=== PATIENT | female | born 1945 | race Caucasian/White ===

== ENCOUNTER 2016-04-26 10:00 | Outpatient (RCR) | payer MEDICARE ==
--- NOTE | 2016-02-29 10:23 | PT/OT/ST INITIAL EVALUATION ---
Department of Health and Human Services Form Approved [facility] Care Financing Administration OMB No. [id number] PLAN OF CARE/ASSESSMENT FOR OUTPATIENT REHABILITATION (Complete for Initial Claims Only) 1. LAST NAME Goodson FIRST NAME Josselin Johnson 2. ACC # [id number] 3. [facility] [id number] 4. PROVIDER NO. [id number] 5. TYPE: X PT 6. PRIOR THERAPY (Same condition) 7. PRIMARY DX Status post left knee scope 8. SECONDARY DX weakness 9. ONSET DATE 02/18/2016 10. REFERRAL DATE 11. SOC. DATE/TIME 02/23/2016 08:05 12. PRIOR LEVEL OF FUNCTION; PERTINENT HISTORY (Prior therapy results, reason for referral.) S: Prior to therapy, the patient did consent to today's evaluation and treatment. The patient is a 71-year-old female referred to physical therapy by Dr. Verdin to address status post left knee scope. The patient does rate her overall and general health as excellent. The patient states she has been dealing with longstanding knee pain for approximately 9 months. The patient did undergo physical therapy prior to the knee scope, but had continued pain. The patient then sought the guidance of an orthopedic surgeon, where it was deemed that surgery was necessary. The surgery was performed on 02/18/2016 where she had a significant meniscus tear that was cleaned up. The patient does state that she additionally had some arthritis present, of which the doctor cleaned up as well. The patient did state she did have a slight restriction in motion prior to surgery and was limited in the amount of ambulation she could perform. The patient states since surgery she is able to walk with less pain, however, when first getting up after sitting for prolonged periods, she does have some sharp pains present at the left knee, mostly on the outside of the knee. Prior function: Includes the patient being unlimited in all activity, including being able to walk for exercise and perform all activities as required of her. Current function: Currently the patient is not able to ambulate up and downstairs secondary to increased pain. Downstairs is especially painful and difficult. She is unable to perform household activities and is unable to walk for exercise. Therapy history does include, once again, PT, which did help somewhat prior to surgery, but the pain continues No obstacles of delivery of care are observed. Maximal pain level is 8/10. Typical pain level 3/10, which is constant. The patient describes the pain as a sharp pain, occasionally with weightbearing, but typically a stiffness sensation. Aggravating factors include increased activities, especially stairs. Relieving factors include rest and ice. Past medical history: Includes hypertension and osteoarthritis. Medication list: The patient has provided list, which is included in the chart. The patient's goal for physical therapy is to get normal use of the left knee, back to the gym for exercise and back to walking outside for exercise. 13. INITIAL ASSESSMENT/SAFETY PRECAUTIONS/MEDICAL COMPLICATIONS (Level of function at start of care. Be specific, use objective measures, list problems.) O: APPEARANCE AND OBSERVATION: The patient presents as an older female in apparently healthy condition. She does ambulate with an antalgic gait pattern without an assistive device. She does have decreased left stance time. PALPATION: With palpation the patient does have swelling palpated throughout the left knee, but was within functional limits. No point tender areas are present. SPECIAL TESTS: Approximately 25% limitation in superior and inferior glide of the patella. Circumferential measures were taken throughout bilateral lower extremities 10 cm inferior to the joint line, at the knee joint line and 10 cm superior to the knee joint line. These measurements on the right are 39.8 cm, 44.2 cm, and 52.1 cm respectively. The measurements on the left are 41.2 cm, 47.4 cm and 51.3 cm respectively. RANGE OF MOTION/FLEXIBILITY: Throughout the right knee is 3 degrees of hyperextension to 129 degrees of flexion. Throughout the left knee is lacking 3 degrees from full extension to 92 degrees of flexion. Following today's treatment the patient was able to flex the left knee actively to 111 degrees. Dorsiflexion is 7 degrees on the right, 0 degrees on the left. Quadriceps flexibility is 105 degrees on the right and 101 degrees on the left. Hip extension is 12 degrees on the right and 5 degrees on the left. STRENGTH: Throughout the right lower extremity is grossly 4+/5, and throughout the left lower extremity grossly 4-/5 with the exception of knee flexion and extension, which tests 3/5. TODAY'S TREATMENT: Following the initial evaluation therapeutic exercise was performed and issued as a home exercise program. A vasopneumatic device with cold and compression was then performed throughout the left knee. The patient did have decreased swelling and pain following today's treatment. 14. INITIAL POC: (Specify procedures, modalities, short and halfway goals) A: The patient presents at physical therapy with diagnosis of status post left knee scope with resultant decreased active range of motion, decreased strength, decreased gait. PROGNOSIS: The patient does have a good prognosis with regular therapy attendance and compliance with home exercise program. This patient is expected to benefit from physical therapy services in order to have decreased swelling, decreased pain for return to full prior activities. OUTCOME ASSESSMENT: Lower extremity functional index, which scored 31/80. FUNCTIONAL LIMITATION CODES: [id number] and [id number] GOALS: 1. The patient to be independence and compliant with home exercise program in 1 week. 2. The patient with active range of motion in the left knee 0 degrees to 120 degrees in 3 weeks to allow for safe community mobility. 3. The patient with left lower extremity strength 4+/5 throughout to allow stair ambulation for full home mobility without restriction. 4. Patient with a LEFI score at least 50/80 in 6 weeks to allow return to working out at the gym. The diagnosis, prognosis, treatment plan, risks and expected outcome were discussed with the patient and the patient did agree to today's established plan of care. PLAN: Plan to treat the patient 2 times per week for 6 weeks in order to address status post left knee scope. Therapeutic treatments to include modalities to decrease pain, inflammation and swelling. Manual therapy techniques as indicated. Therapeutic exercise targeting active range of motion, hip and knee stabilization activities, gait training, balance and proprioceptive training, and patient education and home exercise program to be advanced as warranted. 15. FUNCTIONAL LEVEL (End of claim period) 16. PHYSICIAN SIGNATURE ? ON FILE OR ENTER HERE: 17. DATE: I certify the need for these services furnished under this plan of care and if for partial hospitalization. 18. CERTIFICATION FROM THROUGH FORM
[~2016-04-26 10:00] MED LIST: ATOR10TA PO; INDA1.25 PO; MINO50CA2 PO; NFLOSA25TA PO; ONDA4TAB8 PO
== END 2016-05-10 09:59 | disposition home or self-care (01) ==
LOC: PT 10:00
PROVIDERS: ATTEND Orthopaedic Surgery
DX: S83.282A Other tear of lateral meniscus, current injury, left knee, initial encounter (principal); R53.1 Weakness
CPT/HCPCS: 97001; 97016; 97110; 97112; 97140; G8978; G8979; G8980

== ENCOUNTER 2016-09-16 11:15 | Outpatient (RCR) | payer MEDICARE ==
--- NOTE | 2016-08-22 13:01 | PT/OT/ST INITIAL EVALUATION ---
Department of Health and Human Services Form Approved [facility] Care Financing Administration OMB No. [id number] PLAN OF CARE/ASSESSMENT FOR OUTPATIENT REHABILITATION (Complete for Initial Claims Only) 1. PATIENT'S NAME Josselin Goodson 2. ACC # [id number] [facility]. [facility] [id number] 4. PROVIDER NO. [id number] 5. TYPE: PT 6. PRIOR HOSPITALIZATION NA 7. PRIMARY DX Status post left TKA 8. SECONDARY DX NA 9. ONSET DATE 08/17/2016 10. REFERRAL DATE NA 11. SOC. DATE 08/19/2016 12. TIME OF EVAL 1:03 p.m. 12. REFERRING PHYSICIAN Dr. Demarcus Verdin 13. CHARGES/UNITS NA 14. G CODES [id number] 15. PRIOR LEVEL OF FUNCTION; PERTINENT HISTORY (Prior therapy results, reason for referral.) S: Prior to therapy the patient did consent to today's evaluation and treatment. The patient is a 71-year-old female referred to physical therapy by Dr. Verdin to address status post right TKA. Personal health rating: The patient does rate her overall and general health as excellent. Description/mechanism of injury: The patient states she has been having a longstanding history of left knee pain for approximately the last year. The patient had tried conservative measures including rehab in the past with no significant results. It was deemed that a total knee replacement was required to return her to full function. This knee replacement was performed on 08/16/2016. The patient states she was up and walking the first day after surgery with no significant pain. Prior to leaving the hospital the patient was able to flex her knee to 68 degrees. The patient states at this time she is having difficulty moving her leg in and out of the bed by herself. She does have 2 stairs to enter her residence and is not having significant difficulty with these, although they are challenging. Prior level of function: Includes the patient being unlimited in all activities including going on daily walks. Current level of function: Currently the patient is having difficulty with all ADLs and function and is requiring assistance with these. Therapy History: Includes PT in the past with no significant help. The patient additionally had PT prior to leaving the hospital, which she tolerated well. No obstacles of delivery of care are observed. Pain level: Maximal pain level is 8/10. The pain gets to 4/10 with medications. The patient describes the pain as an achy and stiffness sensation throughout the left knee. Aggravating factors: Include weightbearing, any increased activity and especially bending the knee. Relieving factors: Include oxycodone and ice. Past medical history: Includes hypertension, osteoarthritis and a left total knee replacement. Current medications: The patient will bring a list a future visit. Patient's Goal: The patient's goal for physical therapy is to get back to normal, to be able to return to walking for exercise and to be able to return to unlimited community activity. 16. INITIAL ASSESSMENT/SAFETY PRECAUTIONS/MEDICAL COMPLICATIONS (Level of function at start of care. Be specific, use objective measures, list problems.) O: APPEARANCE, OBSERVATION AND GAIT: The patient presents as an older female in apparently healthy condition. She does ambulate with an antalgic gait pattern with decreased knee flexion throughout the gait cycle and decreased heel strike. The patient does ambulate with a front-wheeled walker. PALPATION: With palpation the patient does have swelling present throughout the left knee, but no pitting edema. SPECIAL TESTS: Include circumferential measures, which were taken 10 cm superior to the joint line, at the joint line of the knee and 10 cm inferior to the joint line. These measurements on the right are 51.2 cm, 48.2 cm, and 42.5 cm respectively. These measurements on the left are 54.5 cm, 51 cm and 43.1 cm respectively. The patient does have a restriction in superior and inferior glide of the patella of approximately 50% limitation. RANGE OF MOTION/FLEXIBILITY: Throughout the right knee is 2 degrees of hyperextension to 125 degrees of flexion. Throughout the left knee is lacking 12 degrees from full extension to 79 degrees of flexion. Following today's treatment the patient is lacking 8 degrees from full extension and had 94 degrees of flexion actively. STRENGTH: Throughout the right lower extremity is 4/5 throughout. Throughout the left lower extremity ankle motion is grossly 4/5, hip motion is grossly 4-/5, and quadriceps was 2+ /5, hamstring 3/5. TODAY'S TREATMENT: Following the initial evaluation therapeutic exercise was performed and then issued as a home exercise program. The vasopneumatic device with cold and compression was then performed throughout the left knee. The patient did report decreased pain following today's treatment and did have improved ambulation. 17. INITIAL POC: (Specify procedures, modalities, short and nursing home goals) A: The patient presents to physical therapy with diagnosis of status post left TKA with resultant decreased gait, decreased active range of motion, decreased strength, increased swelling and decreased activity tolerance. PROGNOSIS: This patient does have a good prognosis with regular therapy attendance and compliance with home exercise program. This patient is expected to benefit from physical therapy services in order to have increased active range of motion, increased strength for return to full prior activity. OUTCOME ASSESSMENT: The Lower Extremity Functional Index which scored 7/80. INFORMED CONSENT: The diagnosis, prognosis, treatment plan, risks and expected outcomes were discussed with the patient and the patient did agree to today's established plan of care. SHORT TERM GOALS: 1. The patient to be independent and compliant with home exercise program in 1 week. 2. The patient with active range of motion of left knee lacking no more than 2 degrees of full extension to 115 degrees of flexion in 3 weeks to allow stair ambulation at home. 3. The patient with left knee strength at least 4/5 throughout to allow ambulation community distances without an assistive device in 5 weeks. 4. The patient with a Lower Extremity Functional Index at least 50/80 in 6 weeks to allow return to walking for exercise. P: Plan to treat the patient 3 times per week for 6 weeks in order to address status post left TKA. Therapeutic treatments to include modalities to decrease pain, inflammation and swelling. Manual therapy techniques as indicated. Therapeutic exercise targeting active range of motion and strengthening, gait training, balance and proprioceptive training, and patient education in home exercise program to be advanced as warranted. 18. FREQUENCY 3 times per week 19. DURATION 6 weeks 20. FUNCTIONAL LEVEL (End of claim period) 21. PHYSICIAN SIGNATURE ? ON FILE OR ENTER HERE: 22. DATE: I certify the need for these services furnished under this plan of care and if for partial hospitalization. 23. CERTIFICATION FROM THROUGH FORM [id number]
== END 2016-09-19 11:12 | disposition home or self-care (01) ==
LOC: PT 11:15
PROVIDERS: ATTEND Orthopaedic Surgery
DX: Z96.652 Presence of left artificial knee joint (principal)
CPT/HCPCS: 97016; 97110; 97112; 97140; 97161; G8978; G8979